=== PATIENT | male | born 1995 ===

== ENCOUNTER 2021-01-27 15:58 | Emergency (ER) | payer OTHER, BC, SELFPAY ==
[2021-01-27 16:10] VITALS: BP 147/100; PULSE 90; RESP 17; TEMP 36.7; O2SAT 100
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
[2021-01-27] MEDS: KETOROLAC (*BKC) 60 MG/2 ML VIAL IM (18:18)
[2021-01-27] MEDS: BACITRACIN OINTMENT 15 GM TUBE 1 APPLIC TOPICAL (18:19)
[2021-01-27] MEDS: TETANUS,DIPHTHERIA,AC PERTUSSIS ADULT (0.5 ML) BOOSTRIX IM (18:19)
== END 2021-01-27 18:45 | disposition home or self-care (01) ==
PROVIDERS: Emergency Provider Nurse Practitioner; PCP Family Medicine
DX: T23.602A Corrosion of second degree of left hand, unspecified site, initial encounter (principal); T32.0 Corrosions involving less than 10% of body surface; Z98.49 Cataract extraction status, unspecified eye; Z96.1 Presence of intraocular lens; R03.0 Elevated blood-pressure reading, without diagnosis of hypertension; Z23 Encounter for immunization; V49.40XA Driver injured in collision with unspecified motor vehicles in traffic accident, initial encounter; W22.11XA Striking against or struck by driver side automobile airbag, initial encounter
CPT/HCPCS: 16000; 16020; 90471; 90715; 96372; 99283; A9270; J1885